=== PATIENT | female | born 1945 | race Caucasian/White ===

== ENCOUNTER → 2016-08-16 18:00 | Outpatient (CLI) | payer OTHER ==
[2011-07-09 06:09] VITALS: BMI 20.7
[2016-08-16 18:44] LABS: CHOL - HDL RATIO 3.2 ratio (2.3-4.1)
== END | disposition home or self-care (01) ==
LOC: D.LABREF 18:00
PROVIDERS: Internal Medicine Cardiovascular Disease
DX: E78.5 Hyperlipidemia, unspecified (principal)

== ENCOUNTER → 2017-12-12 12:38 | Outpatient (CLI) | payer OTHER ==
[2011-07-09 06:09] VITALS: BMI 20.7
== END | disposition home or self-care (01) ==
LOC: D.RAD 12:38
DX: M25.551 Pain in right hip (principal)